=== PATIENT | male | born 1940 | race Caucasian/White ===

== ENCOUNTER 2024-12-11 09:19 | Emergency (ER) | payer MEDICARE, BC | END 2024-12-11 11:00 | disposition home or self-care (01) | LOC: FB.ED 09:19 | DX: S00.83XA Contusion of other part of head, initial encounter (principal); S60.222A Contusion of left hand, initial encounter; W18.39XA Other fall on same level, initial encounter; Y93.89 Activity, other specified | CPT/HCPCS: 70450; 99283 ==